=== PATIENT | male | born 1965 | race Caucasian/White ===

== ENCOUNTER 2021-09-06 10:17 | Inpatient (IN) | payer OTHER ==
[2021-09-06 10:38] VITALS: BMI 29.2
[2021-09-06] MEDS ORDERED: SODIUM CHLORIDE 0.9% 500 ML INFUS.BAG IV ONE ×2 (11:02→12:46)
[2021-09-06] MEDS ORDERED: ACETAMINOPHEN 1000 MG/100 ML BAG IVPB ONE (11:02)
[2021-09-06] MEDS ORDERED: ACETAMINOPHEN INJECTION 100 ML IVPB ONE (11:19)
[2021-09-06 11:49] LABS: BASO % 0.4 % (0-2.0); EOS % 0.5 % (0-4.5); HEMATOCRIT 41.8 % (35.4-49); HEMOGLOBIN 13.9 GM/dL (11.7-16.9); LYMPH % 20.8 % (8-40); MCH 26.4 pg (25.7-33.7); MCHC 33.4 g/dl (32.0-35.9); MEAN CELL VOLUME 79.1 fl (80-96); MEAN PLT VOLUME 8.6 fl (7.5-11.1); MONO % 12.6 % (3.8-10.2); NEUT % 65.7 % (42.8-82.8); PLATELET COUNT 278 10^3/uL (134-434); RBC 5.28 M/mm3 (4.00-5.60); RDW 14.3 % (11.9-15.9); WHITE BLOOD COUNT 10.2 K/mm3 (4.0-10.0)
[2021-09-06 11:59] LABS: INR 1.1 (0.83-1.09); PROTHROMBIN TIME (PATIENT) 12.7 SEC (9.7-13.0)
[2021-09-06 12:02] LABS: ACTIVATED PTT 29.5 SECONDS (25.2-36.5)
[2021-09-06 12:14] LABS: CHLORIDE 101 mmol/L (98-107); SODIUM 138 mmol/L (136-145)
[2021-09-06 12:16] LABS: CALCIUM 9.6 mg/dL (8.5-10.1)
[2021-09-06 12:17] LABS: ALBUMIN 3.8 g/dl (3.4-5.0); BLOOD UREA NITROGEN 19.5 mg/dL (7-18); CO2 26 mmol/L (21-32); GLUCOSE,RANDOM 109 mg/dL (74-106); LIPASE 111 U/L (73-393); MAGNESIUM 1.8 mg/dL (1.8-2.4)
[2021-09-06 12:20] LABS: CREATININE 1.7 mg/dL (0.55-1.3); PHOSPHOROUS 1.9 mg/dL (2.5-4.9); SGOT/AST 20 U/L (15-37); SGPT/ALT 20 U/L (13-61)
[2021-09-06 12:21] LABS: BILIRUBIN,TOTAL 0.6 mg/dL (0.2-1); TOT PROT 8.4 g/dl (6.4-8.2)
[2021-09-06 12:23] LABS: ALK PHOS 71 U/L (45-117); ANION GAP 12 MMOL/L (8-16)
[2021-09-06] MEDS ORDERED: POTASSIUM CHLORIDE TABS 20 MEQ TABLET.ER (FP) PO ONE ×2 (12:32→12:42)
[2021-09-06] MEDS ORDERED: KCL 10 MEQ IVPB 10 MEQ/100 ML INFUS.BAG IVPB SCH (12:45)
[2021-09-06 13:54] LABS: CALCIUM 10.1 mg/dL (8.5-10.1)
[2021-09-06 13:55] LABS: BLOOD UREA NITROGEN 18.4 mg/dL (7-18)
[2021-09-06 13:58] LABS: CREATININE 1.6 mg/dL (0.55-1.3)
[2021-09-06] MEDS ORDERED: NAPH,MB-DB/K PH,MBDB POWDER PACKET PO ONE (14:30)
[2021-09-06] MEDS: amLODIPine BESYLATE 10 MG TABLET (FP) PO SCH (14:30)
[2021-09-06] MEDS ORDERED: amLODIPine BESYLATE 10 MG TABLET (FP) ONE (14:31)
[2021-09-06] MEDS ORDERED: NAPH,MB-DB/K PH,MBDB POWDER PACKET ONE (14:42)
[2021-09-06 18:37] LABS: URINE APPEARANCE CLEAR; URINE BILIRUBIN NEGATIVE (NEGATIVE); URINE COLOR YELLOW; URINE GLUCOSE (UA) NEGATIVE (NEGATIVE); URINE KETONE NEGATIVE (NEGATIVE); URINE LEUK ESTERASE NEGATIVE (NEGATIVE); URINE NITRITE NEGATIVE (NEGATIVE); URINE PROTEIN NEGATIVE (NEGATIVE); URINE UROBILINOGEN 0.2 mg/dL (0.2-1.0)
[2021-09-06] MEDS ORDERED: ATORVASTATIN CA 80 MG TABLET (FP) PO SCH (22:00)
[2021-09-06] MEDS ORDERED: ATORVASTATIN CA 80 MG TABLET (FP) ONE (22:16)
[2021-09-06] MEDS ORDERED: GABAPENTIN 300 MG CAPSULE ONE (22:17)
[2021-09-06] MEDS: GABAPENTIN 300 MG CAPSULE PO SCH (22:24)
[2021-09-07 07:33] LABS: HEMATOCRIT 42.1 % (35.4-49); MCH 26.4 pg (25.7-33.7); MCHC 33.3 g/dl (32.0-35.9); MEAN CELL VOLUME 79.2 fl (80-96); PLATELET COUNT 270 10^3/uL (134-434); RBC 5.32 M/mm3 (4.00-5.60); RDW 14.8 % (11.9-15.9); WHITE BLOOD COUNT 9.2 K/mm3 (4.0-10.0)
[2021-09-07 07:54] LABS: CALCIUM 9.7 mg/dL (8.5-10.1)
[2021-09-07] MEDS ORDERED: POTASSIUM CHLORIDE TABS 20 MEQ TABLET.ER (FP) PO ONE ×2 (07:54→11:00)
[2021-09-07 07:55] LABS: BLOOD UREA NITROGEN 14.4 mg/dL (7-18)
[2021-09-07 07:58] LABS: CREATININE 1.2 mg/dL (0.55-1.3)
[2021-09-07 08:44] VITALS: RESP 18; TEMP 98
[2021-09-07] MEDS ORDERED: EZETIMIBE 10 MG TABLET (FP) PO SCH (10:00)
[2021-09-07] MEDS ORDERED: ASPIRIN 81 MG CHEWABLE TABLETS PO SCH (10:00)
[2021-09-07] MEDS: GABAPENTIN 300 MG CAPSULE PO SCH (10:19)
[2021-09-07] MEDS: amLODIPine BESYLATE 10 MG TABLET (FP) PO SCH (10:19)
[2021-09-07 15:56] VITALS: BP 136/76; PULSE 82
[2021-09-07] MEDS ORDERED: POTASSIUM CHLORIDE TABS 20 MEQ TABLET.ER (FP) PO SCH (22:00)
[2021-09-07] MEDS ORDERED: DONEPEZIL HCL 5 MG TABLET (FP) PO SCH (22:00)
== END 2021-09-07 17:22 | disposition home or self-care (01) | DRG 199 ==
LOC: JER 10:17 → JERBED 13:28 → J4W 09-07 03:48
PROVIDERS: ADMIT Internal Medicine; ATTEND Nurse Practitioner Family
DX: I16.9 Hypertensive crisis, unspecified (principal); N17.9 Acute kidney failure, unspecified; F02.80 Dementia in other diseases classified elsewhere, unspecified severity, without behavioral disturbance, psychotic disturbance, mood disturbance, and anxiety; G30.0 Alzheimer's disease with early onset; E78.00 Pure hypercholesterolemia, unspecified; E78.5 Hyperlipidemia, unspecified; E87.6 Hypokalemia; I25.10 Atherosclerotic heart disease of native coronary artery without angina pectoris; K21.9 Gastro-esophageal reflux disease without esophagitis; R07.89 Other chest pain
CPT/HCPCS: 0241U-QW; 36415; 71045-TC-FY; 76775-TC; 76856-TC; 80048; 80053; 81003; 82570; 83690; 83735; 84100; 84484; 84540; 85025; 85027; 85610; 85730; 93005; 93010; 99285-25

== ENCOUNTER 2021-10-13 16:12 | Observation (INO) | payer OTHER ==
[2021-10-13 18:26] LABS: CHLORIDE 92 mmol/L (98-107); SODIUM 130 mmol/L (136-145)
[2021-10-13 18:30] LABS: ALBUMIN 4.1 g/dl (3.4-5.0); CO2 23 mmol/L (21-32); GLUCOSE,RANDOM 110 mg/dL (74-106); MAGNESIUM 1.3 mg/dL (1.8-2.4)
[2021-10-13 18:31] LABS: BLOOD UREA NITROGEN 15.5 mg/dL (7-18)
[2021-10-13 18:33] LABS: CREATININE 1.2 mg/dL (0.55-1.3); PHOSPHOROUS 3.4 mg/dL (2.5-4.9)
[2021-10-13 18:34] LABS: SGOT/AST 24 U/L (15-37); SGPT/ALT 23 U/L (13-61)
[2021-10-13 18:35] LABS: BILIRUBIN,TOTAL 0.7 mg/dL (0.2-1); TOT PROT 8.3 g/dl (6.4-8.2)
[2021-10-13 18:36] LABS: ALK PHOS 66 U/L (45-117)
[2021-10-13 18:40] LABS: ANION GAP 15 MMOL/L (8-16); BASO % 0.4 % (0-2.0); EOS % 0.7 % (0-4.5); HEMATOCRIT 37.1 % (35.4-49); HEMOGLOBIN 12.6 GM/dL (11.7-16.9); LYMPH % 22.1 % (8-40); MCH 26.8 pg (25.7-33.7); MCHC 33.9 g/dl (32.0-35.9); MONO % 7.5 % (3.8-10.2); NEUT % 69.3 % (42.8-82.8); PLATELET COUNT 253 10^3/uL (134-434); RDW 15.4 % (11.9-15.9); WHITE BLOOD COUNT 12.1 K/mm3 (4.0-10.0)
[2021-10-13] MEDS ORDERED: POTASSIUM CHLORIDE TABS 20 MEQ TABLET.ER (FP) PO ONE ×2 (18:45→19:36)
[2021-10-13] MEDS ORDERED: MAGNESIUM SULF 50% (8.12 MEQ/2 ML-1 GM VIAL) IVPB ONE (18:49)
[2021-10-13 18:54] LABS: PH,URINE 7.5 (5.0-8.0); URINE APPEARANCE CLEAR; URINE BILIRUBIN NEGATIVE (NEGATIVE); URINE COLOR YELLOW; URINE GLUCOSE (UA) NEGATIVE (NEGATIVE); URINE KETONE NEGATIVE (NEGATIVE); URINE LEUK ESTERASE NEGATIVE (NEGATIVE); URINE NITRITE NEGATIVE (NEGATIVE); URINE PROTEIN NEGATIVE (NEGATIVE); URINE UROBILINOGEN 0.2 mg/dL (0.2-1.0)
[2021-10-13] MEDS ORDERED: POTASSIUM CHLORIDE 20 MEQ PREMIX IVPB 100 ML IVPB SCH (19:00)
[2021-10-13] MEDS ORDERED: MAGNESIUM 1GM/D5W - 1 GM/100 ML IVPB IVPB ONE (19:36)
[2021-10-13] MEDS ORDERED: KCL 10 MEQ IVPB 10 MEQ/100 ML INFUS.BAG IVPB ONE (19:40)
[2021-10-13] MEDS ORDERED: MAGNESIUM SULFATE IN WATER 2 GM/50 ML IVPB IVPB ONE (19:40)
[2021-10-13] MEDS ORDERED: LORazepam 2 MG TABLET PO ONE (19:50)
[2021-10-13] MEDS: KCL 10 MEQ IVPB 10 MEQ/100 ML INFUS.BAG IVPB SCH ×3 (20:07→22:42)
[2021-10-13] MEDS ORDERED: KCL 10 MEQ IVPB 20 MEQ/200 ML INFUS.BAG IVPB ONE (20:53)
[2021-10-13] MEDS ORDERED: LORazepam 0.5 MG TABLET ONE (21:16)
[2021-10-13] MEDS: ENOXAPARIN NA (PORCINE) 40 MG/0.4 ML DISP.SYRIN SQ SCH (23:47)
[2021-10-13] MEDS ORDERED: ENOXAPARIN NA (PORCINE) 40 MG/0.4 ML DISP.SYRIN SQ ONE (23:49)
[2021-10-14 00:22] LABS: BLOOD UREA NITROGEN 12.8 mg/dL (7-18); MAGNESIUM 1.9 mg/dL (1.8-2.4)
[2021-10-14 00:24] LABS: CREATININE 1.1 mg/dL (0.55-1.3)
[2021-10-14] MEDS ORDERED: CYCLOBENZAPRINE HCL 10 MG TABLET (FP) PO PRN (00:25)
[2021-10-14 06:55] LABS: CALCIUM 9.9 mg/dL (8.5-10.1); MAGNESIUM 1.9 mg/dL (1.8-2.4)
[2021-10-14 06:56] LABS: BLOOD UREA NITROGEN 12.4 mg/dL (7-18)
[2021-10-14 06:59] LABS: CREATININE 1.2 mg/dL (0.55-1.3)
[2021-10-14 07:00] LABS: PHOSPHOROUS 5.4 mg/dL (2.5-4.9); TOT PROT 8.3 g/dl (6.4-8.2)
[2021-10-14 07:21] LABS: BASO % 0.4 % (0-2.0); EOS % 1.5 % (0-4.5); HEMATOCRIT 39.1 % (35.4-49); HEMOGLOBIN 13.2 GM/dL (11.7-16.9); LYMPH % 32.3 % (8-40); MCH 26.7 pg (25.7-33.7); MCHC 33.8 g/dl (32.0-35.9); MEAN CELL VOLUME 78.9 fl (80-96); MEAN PLT VOLUME 9.1 fl (7.5-11.1); MONO % 10.8 % (3.8-10.2); PLATELET COUNT 262 10^3/uL (134-434); RBC 4.95 M/mm3 (4.00-5.60); RDW 15.5 % (11.9-15.9); WHITE BLOOD COUNT 11.1 K/mm3 (4.0-10.0)
[2021-10-14] MEDS ORDERED: amLODIPine BESYLATE 10 MG TABLET (FP) ONE (09:34)
[2021-10-14] MEDS ORDERED: LOSARTAN POTASSIUM 50 MG TABLET ONE (09:34)
[2021-10-14] MEDS ORDERED: GABAPENTIN 300 MG CAPSULE ONE ×3 (09:35→23:16)
[2021-10-14] MEDS ORDERED: ASPIRIN 81 MG CHEWABLE TABLETS ONE (09:35)
[2021-10-14] MEDS ORDERED: ENOXAPARIN NA (PORCINE) 40 MG/0.4 ML DISP.SYRIN SQ ONE (09:35)
[2021-10-14] MEDS: GABAPENTIN 300 MG CAPSULE PO SCH ×3 (09:45→23:30)
[2021-10-14] MEDS: LOSARTAN POTASSIUM 50 MG TABLET PO SCH (09:48)
[2021-10-14] MEDS: ASPIRIN 81 MG CHEWABLE TABLETS PO SCH (09:48)
[2021-10-14] MEDS: ENOXAPARIN NA (PORCINE) 40 MG/0.4 ML DISP.SYRIN SQ SCH (09:48)
[2021-10-14] MEDS: amLODIPine BESYLATE 10 MG TABLET (FP) PO SCH (09:48)
[2021-10-14] MEDS ORDERED: ALPRAZolam 0.25 MG TABLET PO PRN (11:57)
[2021-10-14] MEDS ORDERED: ALPRAZolam 0.25 MG TABLET ONE (18:14)
[2021-10-14 19:46] VITALS: RESP 18
[2021-10-14] MEDS ORDERED: ATORVASTATIN CA 80 MG TABLET (FP) PO SCH (22:00)
[2021-10-14] MEDS ORDERED: ATORVASTATIN CA 80 MG TABLET (FP) ONE (23:15)
[2021-10-15 05:31] VITALS: BMI 28.1
[2021-10-15] MEDS: GABAPENTIN 300 MG CAPSULE PO SCH ×2 (06:47→13:28)
[2021-10-15 07:38] LABS: HEMATOCRIT 39.6 % (35.4-49); MCH 26.3 pg (25.7-33.7); MCHC 32.7 g/dl (32.0-35.9); MEAN CELL VOLUME 80.2 fl (80-96); MEAN PLT VOLUME 8.6 fl (7.5-11.1); PLATELET COUNT 251 10^3/uL (134-434); RBC 4.93 M/mm3 (4.00-5.60); RDW 15.7 % (11.9-15.9); WHITE BLOOD COUNT 10.5 K/mm3 (4.0-10.0)
[2021-10-15 08:07] LABS: BLOOD UREA NITROGEN 19.1 mg/dL (7-18); CALCIUM 9.6 mg/dL (8.5-10.1); MAGNESIUM 1.7 mg/dL (1.8-2.4)
[2021-10-15 08:10] LABS: CREATININE 1.2 mg/dL (0.55-1.3)
[2021-10-15 09:02] VITALS: BP 146/86; PULSE 70; TEMP 97.5
[2021-10-15] MEDS: ASPIRIN 81 MG CHEWABLE TABLETS PO SCH (09:50)
[2021-10-15] MEDS: ENOXAPARIN NA (PORCINE) 40 MG/0.4 ML DISP.SYRIN SQ SCH (09:50)
[2021-10-15] MEDS: LOSARTAN POTASSIUM 50 MG TABLET PO SCH (09:50)
[2021-10-15] MEDS: amLODIPine BESYLATE 10 MG TABLET (FP) PO SCH (09:50)
[2021-10-15] MEDS ORDERED: MAGNESIUM OXIDE 400 MG TABLET (FP) PO ONE (12:38)
== END 2021-10-15 14:21 | disposition home or self-care (01) ==
LOC: JER 16:12 → UNDOADMOB 19:12 → JERBED 19:12 → OBSVTOIN 21:51 → INTOOBSV 21:51 → JERBED 10-14 12:07 → J4W 10-15 00:07
PROVIDERS: ADMIT Internal Medicine
PROC: 3E023GC Introduction of Other Therapeutic Substance into Muscle, Percutaneous Approach (ICD-10-PCS; principal; 2021-10-14)
PROC: 3E033GC Introduction of Other Therapeutic Substance into Peripheral Vein, Percutaneous Approach (ICD-10-PCS; 2021-10-14)
DX: I16.0 Hypertensive urgency (principal); E78.00 Pure hypercholesterolemia, unspecified; E87.6 Hypokalemia; H53.8 Other visual disturbances; F03.90 Unspecified dementia, unspecified severity, without behavioral disturbance, psychotic disturbance, mood disturbance, and anxiety; R09.89 Other specified symptoms and signs involving the circulatory and respiratory systems; I11.9 Hypertensive heart disease without heart failure; I25.10 Atherosclerotic heart disease of native coronary artery without angina pectoris; R06.02 Shortness of breath; K21.9 Gastro-esophageal reflux disease without esophagitis; F41.9 Anxiety disorder, unspecified; Z86.16 Personal history of COVID-19; R20.0 Anesthesia of skin
CPT/HCPCS: 0241U-QW; 36415; 70450-TC; 70551-TC; 71046-TC-FY; 80048; 80053; 80061; 81003; 83735; 84100; 84443; 84484; 85025; 85027; 87086; 93005; 93010; 93880-TC; 99285-25; G0378